=== PATIENT | female | born 1980 | race Caucasian/White ===

== ENCOUNTER 2017-09-04 12:59 | Emergency (ER) | payer MEDICAID ==
[2017-09-04 13:11] VITALS: BP 114/66; PULSE 97; RESP 18; TEMP 99.3; O2SAT 97
--- NOTE | 2017-09-04 13:59 | EDPHY ---
H & P Time Seen by Provider: 09/04/17 13:32 HPI/ROS: This patient complains of a sore throat 6/10 intensity onset over the past 24 hr associated with mild myalgias and minimal nasal congestion. She describes a bifrontal headache similar to prior headaches with no exacerbating factors except relief from Excedrin migraine that she took prior to arrival. Is now mild in intensity. . Patient is able tolerate p.o. Intake despite her sore throat and has no other complaints . ROS: No high fevers or chills. No other constitutional symptoms HEENT: No ear pain. Pulmonary: No coughing. Cardiovascular: No lightheadedness. No chest pain. GI: No belly pain, nausea vomiting. Integumentary: No rash. 7 point ROS is otherwise negative. Smoking Status: Never smoked Physical Exam: Physical Exam Vital signs are normal. General: No acute distress HEENT: Nose: Clear bilaterally. No sinus tenderness to percussion. Ears: External canals and tympanic membranes are clear with no erythema or abnormal findings bilaterally. Oropharynx: Mild erythema. No exudates. No dysphonia. No drooling or stridor. Eyes: Pupils equal and react to light. Extraocular motions are intact. Neck: Supple with no meningismus. No lymphadenopathy Lungs: Clear to auscultation bilaterally with no rales, rhonchi or wheeze. No respiratory distress. Cardiac: Regular rate and rhythm with no murmur gallop or rub Skin: No rash or pallor. Neuro: Alert with no focal deficits noted. Dif. Dx: viral pharyngitis, strep pharyngitis, Viral URI Constitutional: Initial Vital Signs Temperature (C) 37.4 C 09/04/17 13:04 Heart Rate 97 09/04/17 13:04 Respiratory Rate 18 09/04/17 13:04 Blood Pressure 114/66 09/04/17 13:04 O2 Sat (%) 97 09/04/17 13:04 O2 Delivery Mode Room Air Allergies/Adverse Reactions: No Known Allergies Allergy (Unverified 09/04/17 13:11) Home Medications: Medication Instructions Recorded Viviscal 09/04/17 ZYRTEC 09/04/17 guaiFENesin [Guaifenesin] 200 - 400 mg PO Q4 PRN #30 tablet 09/04/17 MDM/Departure - MDM Diagnostics: Rapid strep neg Influenza rapid swab is neg. - Depart Disposition: Home, Routine, Self-Care Clinical Impression: Viral pharyngitis, Viral URI Condition: Good Instructions: Pharyngitis (ED), Upper Respiratory Infection (ED) Additional Instructions: Diagnoses: 1. Viral URI 2. Viral pharyngitis Rapid influenza and rapid strep test were negative today. Plan: Humidifier Guaifenesin Ibuprofen or Aleve and Tylenol for symptoms as needed. Rest Plenty fluids Return for any significant worsening despite the treatment plan. Stand Alone Forms: Work Excuse Prescriptions: guaiFENesin [Guaifenesin] 200 - 400 mg PO Q4 PRN #30 tablet PRN Reason: congestion Referrals: NONE *PRIMARY CARE P,. [Unknown] - As per Instructions
== END 2017-09-04 14:02 | disposition home or self-care (01) ==
LOC: CED 12:59
DX: J02.8 Acute pharyngitis due to other specified organisms (principal); B97.89 Other viral agents as the cause of diseases classified elsewhere; J06.9 Acute upper respiratory infection, unspecified
CPT/HCPCS: 87400-PO; 87880-PO

== ENCOUNTER 2017-09-06 03:39 | Emergency (ER) | payer MEDICAID ==
[2017-09-06 03:51] VITALS: RESP 16; O2SAT 96
--- NOTE | 2017-09-06 03:57 | EDPHY ---
H & P Time Seen by Provider: 09/06/17 03:55 HPI/ROS: CC: Throat pain HPI: This 37-year-old female [facility] complaining of a sore throat. She was here a couple of days ago and had a negative rapid strep test and negative influenza but says her throat "feels like strep". She states that about 3 days ago she started feeling cold and achy in her bones. Her fever has been no higher than 99 F. Her throat pain has gotten worse and she now rates it a 7/10 and she sees white patches on the back of her throat. She continues to have a mild headache as well as ear congestion. She states she has had some sinus drainage and has spit up some greenish tinged mucus. She does not have a stiff neck. She denies rashes. She states she had mono years ago. She has a roommate who is starting to get sick. REVIEW OF SYSTEMS: Constitutional: See HPI. Eyes: No discharge, no visual disturbance. ENT: See HPI. Respiratory: +Cough, no shortness of breath. Cardiac: No chest pain, occasional palpitations over the last 3 months. Gastrointestinal: Occasional epigastric discomfort over the last 3 months. Genitourinary: No hematuria, dysuria. Musculoskeletal: No neck or a back pain. Skin: No rashes. Neurological: No weakness. Past Medical/Surgical History: Past medical history includes anxiety, mono, elevated triglycerides Past surgical history includes cholecystectomy in 2013 Family history significant for mother alive at age 70 having high cholesterol and father alive at age 74 with pre diabetes and dementia No known drug allergies Medications include is Excedrin migraine, coop Anacin, and Zyrtec as needed First day last menstrual period was 3 weeks ago she is 0 para 0. Denies possibility of at this time. She has [place] [employer] and has not found a primary care provider in the year that she has moved here from [place]. Social History: She does not use tobacco products, drink alcohol or smoke marijuana. She lives with a roommate. She is originally from [place]. Recently moved here from [place]. Smoking Status: Never smoked Physical Exam: General Appearance: Alert, mild distress. Eyes: Pupils equal and round no pallor or injection. ENT, Mouth: TMs normal, nasal turbinates edematous with scant discharge, mucous membranes are moist with bilateral exudates, uvula midline, no sign of abscess. Respiratory: There are no retractions, lungs are clear to auscultation. Cardiovascular: Regular rate and rhythm, no murmur. Gastrointestinal: Abdomen is soft and nontender. Neurological: Awake and alert, sensory and motor exams grossly normal. Skin: Warm and dry, no rashes. Musculoskeletal: Neck is supple and nontender. Extremities are symmetrical, full range of motion. Psychiatric: Patient is oriented X 3, there is no agitation. DIFFERENTIAL DIAGNOSIS: After history and physical exam differential diagnosis was considered for but not limited to: viral syndrome, mononucleosis, strep pharyngitis, tonsillitis, exudative pharyngitis, viral pharyngitis, sinusitis Constitutional: Initial Vital Signs Temperature (C) 98.4 F 09/06/17 03:49 Heart Rate 100 09/06/17 03:49 Respiratory Rate 16 09/06/17 03:49 Blood Pressure 136/63 H 09/06/17 03:49 O2 Sat (%) 96 09/06/17 03:49 O2 Delivery Mode Room Air Allergies/Adverse Reactions: No Known Allergies Allergy (Verified 09/06/17 03:47) Home Medications: Medication Instructions Recorded ZYRTEC 09/04/17 Azithromycin [Zithromax] 250 mg PO DAILY #6 tab 09/06/17 Medical Decision Making ED Course/Re-evaluation: The patient was seen and examined. Vital signs and prior records reviewed. The patient is afebrile and the remainder of her vital signs are within normal limits. A mono spot was negative. A repeat rapid strep was negative. Patient was given 10 mg of oral liquid Decadron and 600 mg of ibuprofen. Her throat looks like a bacterial infection clinically. I will treat with azithromycin. Patient to establish care with a primary care provider. - Data Points Laboratory Results: 09/06/17 09/06/17 09/06/17 Unknown 04:22 03:55 Monoscreen NEGATIVE (NEGATIVE) Group A Strep Screen NEGATIVE (NEGATIVE) Group A Strep DNA Pending Medications Given: Discontinued Medications Dexamethasone (Decadron Injection) 10 mg PO EDNOW ONE Stop: 09/06/17 04:22 Last Admin: 09/06/17 04:24 Dose: 10 mg Ibuprofen (Motrin) 600 mg PO EDNOW ONE Stop: 09/06/17 04:22 Last Admin: 09/06/17 04:26 Dose: 600 mg Departure - Departure Disposition: Home, Routine, Self-Care Clinical Impression: Exudative pharyngitis Condition: Good Instructions: Pharyngitis (ED) Additional Instructions: Rest. Drink plenty of fluids. Tylenol or Ibuprofen for pain or fever. Establish care with a primary care provider and follow up in the next 2 - 3 weeks. Return to the ER sooner if symptoms worsen as discussed. Referrals: [facility],. [Clinic] - As per Instructions Prescriptions: Azithromycin [Zithromax] 250 mg PO DAILY #6 tab
[2017-09-06] MEDS ORDERED: IBUPROFEN 600 MG TAB PO ONE (04:21)
[2017-09-06] MEDS ORDERED: DEXAMETHASONE 10 MG/ML VIAL ONE (04:21)
[2017-09-06] MEDS ORDERED: DEXAMETHASONE 10 MG/ML VIAL PO ONE (04:21)
[2017-09-06] MEDS ORDERED: AZITHROMYCIN 250 MG TAB PO ONE (04:49)
[2017-09-06 05:12] VITALS: BP 104/74; PULSE 89; TEMP 98.6
== END 2017-09-06 05:11 | disposition home or self-care (01) ==
LOC: CED 03:39
DX: J02.9 Acute pharyngitis, unspecified (principal)
CPT/HCPCS: 86308-PO; 87880-PO; J1100